=== PATIENT | female | born 1960 | race Caucasian/White ===

== ENCOUNTER 2020-03-04 13:59 | Emergency (ER) | payer OTHER, SELFPAY ==
[2020-03-04 14:09] VITALS: BP 200/60; PULSE 64; RESP 16; TEMP 36.3; O2SAT 100
--- NOTE | 2020-03-04 14:17 | ED.GENADULT ---
HPI - General Adult General Chief complaint: Extremity Injury, Upper Stated complaint: Problem with circulation in hand Time Seen by Provider: 03/04/20 14:17 Source: patient Mode of arrival: ambulatory Limitations: no limitations History of Present Illness HPI narrative: Patient is a 59-year-old female with history of breast cancer who presents for evaluation of skin change. Patient reports that while she was driving she noticed that the tips of 3 of her fingers on her left hand appeared white in color. She has no history of vasculitis, DVT or blood clot, no history of Raynauds. 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 No worsening numbness, paresthesias or decreased strength. No arm swelling, arm pain or arm redness. No lesions. No recent upper respiratory illness symptoms such as rhinorrhea, cough, sore throat. No chest pain or shortness of breath. No trauma to the hand. No recent new medication changes. Related Data Allergies Allergy/AdvReac Type Severity Reaction Status Date / Time docetaxel Allergy Unknown HIVES, RED Verified 03/04/20 14:26 SKIN propoxyphene Allergy Unknown HIVES Verified 03/04/20 14:26 Review of Systems Review of Systems: Narrative: CONSTITUTIONAL: Denies fever, chills, or sweats. EYES: Denies visual changes ENT: Denies rhinorrhea, congestion CARDIOVASCULAR: Denies chest pain, palpitations, or edema. RESPIRATORY: Denies cough or dyspnea. GASTROINTESTINAL: Denies abdominal pain, nausea, vomiting GENITOURINARY: Denies dysuria or hematuria. SKIN: Reports resolved rash, no pain or itching, no lesions MUSCULOSKELETAL: Denies back pain, joint pain, or myalgia. NEUROLOGIC: Denies headache, numbness, or weakness. 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 EYES: PERRLA and EOMI. ENT: Nares clear, no rhinorrhea or epistaxis. Mucous membranes moist. NECK: Supple. CHEST: No respiratory distress, breathing even and non labored HEART: Regular rate, sinus rhythm ABDOMEN:Non distended, non tender EXTREMITIES: Normal range of motion. No edema. SKIN: Warm, dry, no rash. No cyanosis, capillary refill in the nailbeds is less than 3 seconds bilateral hands. Radial pulse in the left hand is 2+, intact sensation median, ulnar, radial nerve distribution. Car Varnisher strength is 5 out of 5. NEURO:No focal deficits. Alert and oriented x3 Course Course Emergency Course: At the time of initial assessment, ABCs are intact and vital signs notable for hypertension however repeat blood pressure was improved. Patient with what appears to be Raynauds phenomenon with a photograph on her phone, but no evidence of any skin changes with good capillary refill at the time of assessment in the ER. Patient neurovascularly intact without any strength deficits. Intact distal sensation. No lesions that be concerning for micro emboli or COVID type changes. I do not feel that there is a severe life or limb threatening process currently as patient is neurologically intact. No recent respiratory illnesses, arm
== END 2020-03-04 14:47 | disposition home or self-care (01) ==
PROVIDERS: Emergency Provider Emergency Medicine; PCP Internal Medicine
DX: I73.00 Raynaud's syndrome without gangrene (principal); E03.9 Hypothyroidism, unspecified; F43.21 Adjustment disorder with depressed mood; F17.200 Nicotine dependence, unspecified, uncomplicated; Z85.3 Personal history of malignant neoplasm of breast; Z92.21 Personal history of antineoplastic chemotherapy
CPT/HCPCS: 99281

== ENCOUNTER 2020-03-09 13:57 | Outpatient (CLI) | payer OTHER, SELFPAY ==
--- NOTE | ~2020-03-09 | CT_ITS ---
EXAMINATION: CTA chest EXAM DATE: 03/09/2020 14:48 INDICATION: Weak left arm pulse. Breast cancer. TECHNIQUE: Spiral CT of the chest following intravenous injection of 75 mL Omnipaque 350. Axial, cor onal and sagittal images were reviewed. Coronal maximum intensity pixel images of chest reviewed. Ma ximum intensity projection 3-D reconstructions of the aorta were created by the technologist on [email or web address] workstation. The dose-length product (DLP) for this examination was 161.00 mGy-cm. The exposu re was tailored according to patient size (auto mA exposure control), and iterative reconstruction (A SIR) was used as additional dose reduction technique. Comparison is made to prior examination from . FINDINGS: There is mild atherosclerosis at the origins of the brachiocephalic, left common carotid an d left subclavian arteries. Some limitations due to motion of the aortic arch but there may be approx imately 20% stenosis of the left subclavian artery origin. Several other regions of left subclavian a rterial sclerosis also causing approximately 20% stenosis by diameter. Thoracic aorta is normal in ca liber, and there is no dissection. Bilateral breast implants. There is mild emphysema. The lungs are clear. There are no pleural or pe ricardial effusions. Tracheobronchial tree is patent. There is no mediastinal, hilar or axillary lymphadenopathy. There is no pneumothorax. Heart normal in size. No evidence of coronary arteri al calcification. Upper abdomen is unremarkable. There is mild to moderate thoracic spondylosis wi thout osteoblastic or osteolytic lesions identified. IMPRESSION: 1. Mild scattered arteriosclerotic disease but no more than 20% stenosis of the left subclavian susp ected. 2. Mild emphysema. Reviewed, dictated and finalized at [facility]. IMPRESSION: 1. Mild scattered arteriosclerotic disease but no more than 20% stenosis of th e left subclavian suspected. 2. Mild emphysema.
== END 2020-03-09 13:58 | disposition home or self-care (01) ==
PROVIDERS: PCP Internal Medicine; Visit Provider Internal Medicine
DX: R09.89 Other specified symptoms and signs involving the circulatory and respiratory systems (principal); I70.90 Unspecified atherosclerosis; J43.9 Emphysema, unspecified
CPT/HCPCS: 71275; Q9967

== ENCOUNTER → 2020-05-10 10:12 | Outpatient (CLI) | payer OTHER, SELFPAY ==
--- NOTE | ~2020-05-10 | DEXA_ITS ---
Bone Density Report Name: Kary Porter Age: 60 Sex: Female Ethnicity: White Date of : 1960 Indication: postmenopausal; screening for osteoporosis; cancer; Referring Provider: Michael Moon Study: Bone densitometry was performed. Exam Date: May 10, 2020 Accession number: [id number] Bone Density: Region BMD T-score Z-score Classification AP Spine (L1-L4) 1.119 0.7 2.1 Normal Femoral Neck (Left) 0.749 -0.9 0.4 Normal Total Hip (Left) 0.840 -0.8 0.1 Normal Femoral Neck (Right) 0.759 -0.8 0.5 Normal Total Hip (Right) 0.811 -1.1 -0.1 Osteopenia Total Hip Mean 0.826 -1.0 0.0 Normal World Health Organization criteria for BMD impression classify patients as: Normal (T-score at or above -1.0), Osteopenia (T-score between -1.0 and -2.5), or Osteoporosis (T-score at or below -2.5). 10-year Fracture Risk(1): Major Osteoporotic Fracture 5.7% Hip Fracture 0.6% Reported Risk Factors: [place] (), Neck BMD=0.749, BMI=18.3, smoking (1) FRAX(R) Version 3.08. Fracture probability calculated for an untreated patient. Fracture probability may be lower if the patient has received treatment. Previous Exams: Region Exam Age BMD T-score BMD Change BMD Change Date g/cm2 vs Baseline vs Previous AP Spine(L1-L4) 05/10/2020 60 1.119 0.7 -0.020 -0.020 02/07/2015 54 1.139 0.8 Total Hip(Left) 05/10/2020 60 0.840 -0.8 -0.065* -0.065* 02/07/2015 54 0.904 -0.3 Total Hip(Right) 05/10/2020 60 0.811 -1.1 -0.071* -0.071* 02/07/2015 54 0.883 -0.5 *Denotes significance at 95% confidence level, LSC for AP Spine = 0.022 g/cm2, LSC for Total Hip = 0.027 g/cm2 Clinical Information Provided by Patient: Smokes Has used the following medications: Vitamin D, Calcium Has the following medical conditions: Cancer Patient maximum height was 65 Menopause Age: 50 No regular weight bearing exercise Drinks caffeinated beverages Onset of menses at age 12 Number of children 1 Impression: The patient has low bone mass, based on the Right Total Hip T-score. The patient has an estimated ten-year risk of hip fracture of 0.6% and an estimated ten-year risk of major fracture of 5.7%, based on the WHO FRAX algorithm. The patient has risk factors, including: smoking. The BMD for the Total Hip(Left) decreased, changing by -0.065 since the last DXA exam. The BMD for the Total Hip(Right) decreased, changing by
== END ==
PROVIDERS: PCP Internal Medicine; Visit Provider Obstetrics & Gynecology
DX: Z78.0 Asymptomatic menopausal state (principal); M85.851 Other specified disorders of bone density and structure, right thigh
CPT/HCPCS: 77080

== ENCOUNTER 2020-09-22 01:40 | Outpatient (CLI) | payer OTHER, SELFPAY ==
[2020-09-22 18:58] LABS: SARS-CoV-2 RNA PCR Negative
== END 2020-09-22 01:41 | disposition home or self-care (01) ==
LOC: ANHCOVIDDT 01:40
PROVIDERS: PCP Internal Medicine; Visit Provider Internal Medicine Gastroenterology
DX: Z01.818 Encounter for other preprocedural examination (principal); Z20.828 Contact with and (suspected) exposure to other viral communicable diseases
CPT/HCPCS: 87635; C9803; U0003

== ENCOUNTER 2020-09-25 01:46 | Day surgery (SDC) | payer OTHER, SELFPAY ==
[2020-09-19 10:45] VITALS: BMI 18.6
--- NOTE | 2020-09-19 11:02 | PC.NURSE ---
Pt. states she takes Xarelto 20 mg daily as preventative, pt. had a left arm arterial embolism in March 2020. Instructed pt. to call Dr. Schaefer office to receive instructions on whether to hold or continue Xarelto prior to procedure. 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
--- NOTE | 2020-09-24 09:52 | P.PNAN_ITS ---
Anes - Initial Pre Proc Eval Procedure: Operation Date: 09/25/20 10:45 Proposed Procedures p Screening Colonoscopy - Anton López MD Date/Time: 09/24/20 09:52 Surgeon: Anton López MD Pre Op Diagnosis: Neoplasm Screening Patient Data Age: 60 Gender: F Height: 1.64 m Weight: 50 kg Allergies Allergy/AdvReac Type Severity Reaction Status Date / Time docetaxel Allergy Unknown HIVES, RED Verified 09/25/20 09:16 SKIN propoxyphene Allergy Unknown HIVES Verified 09/25/20 09:16 Home Medications Medication Instructions Recorded Confirmed Type trazodone 50 mg tablet 50 mg PO .AT HS #30 tablet 03/09/20 09/19/20 Rx aspirin 81 mg tablet,delayed 81 mg PO DAILY 03/23/20 09/19/20 History release venlafaxine 37.5 mg 37.5 mg PO DAILY #30 cap 06/12/20 09/19/20 Rx capsule,extended release 24 hr amlodipine 5 mg tablet 5 mg PO DAILY #90 tablet 07/27/20 09/19/20 Rx levothyroxine 112 mcg tablet 112 mcg PO DAILY #90 tablet 08/08/20 09/19/20 Rx sodium,potassium,mag sulfates 17.5 354 ml PO .COMPLEX #354 ml 08/14/20 09/19/20 Rx gram-3.13 gram-1.6 gram oral soln calcium carbonate-vitamin D3 1 tablet PO BID 09/19/20 09/19/20 History [Calcium 600 + D(3)] rivaroxaban [Xarelto] 20 mg PO DAILY 09/19/20 09/19/20 History Patient hx anesthesia problems: none Family hx anesthesia problems: none PMFSH Past Medical History Medical History (Updated 09/25/20 @ 10:02 by Angel Tanner DO) Essential hypertension Heart murmur Hx of adenomatous colonic polyps Hypothyroidism Insomnia Loss of sense of smell Malignant neoplasm of left female breast On senior living drug therapy Personal history of nicotine dependence Situational depression Family History Family History (Updated 05/15/17 @ 14:34 by DOCTOR UNKNOWN) Mother Family history of thyroid disease Family history of chronic obstructive pulmonary disease Family history of lung disease Sibling Family history of hepatitis Social History Social History Smoking packs per day: 1 Smoking cigarettes per day: 20.0 Years smoked: 45 Smoking pack-years: 45.00 Smoking status: Current every day smoker Tobacco type: cigarettes Alcohol intake: current Drinks per week: 6 Alcohol use details: 6 beers a week Living arrangements: with family Gender identity (if verbalized by the patient): Female Spiritual care concerns: No Anes - Eval Final PreProcedure Day of Procedure 09/24/20 09:52 Patient weight: thin Heart: regular rate and rhythm Lungs: clear to auscultation and normal air movement Airway: Mallampati scale class II Neurological: alert and oriented Last oral intake: >/= 8 hours ASA classification: III Emergent: no Anesthetic plan: proceed Anesthesia type and monitoring: general GIVS and standard monitoring Informed Consent: The patient's anesthetic plan and its attendant risks and benefits were discussed with the patient/family/POA. Questions were solicited and answers provided to the satisfaction of the patient/family/POA.
[2020-09-25] MEDS: LACTATED RINGERS 1,000 ML 150 ML IV CONT (09:25)
[2020-09-25 09:26] VITALS: BP 133/50; PULSE 69; RESP 18; TEMP 36.4; O2SAT 97; BMI 17.4
--- NOTE | 2020-09-25 10:02 | PM.HPGS ---
History of Present Illness History of Present Illness Consent: Risks, benefits, and alternatives have been discussed and questions answered. Patient agrees to proceed with procedure. Chief complaint: Neoplasm Screening Narrative: Kary Porter is a 60 year old female with polyps 3 years ago Review of Systems Constitutional: Constitutional: Denies headache(s) and Denies weakness Eyes: Eyes: Denies blurry vision ENT: Reports Normal hearing present, Denies headache(s) and Denies neck pain Cardiovascular: Cardiovascular: Denies chest pain and Denies dyspnea Respiratory: Respiratory: Denies dyspnea Gastrointestinal: Gastrointestinal: Reports no additional gastrointestinal complaints Genitourinary: Genitourinary: Denies dysuria Musculoskeletal: Musculoskeletal: Denies neck pain Integumentary/Breasts: Skin/Breast: Denies dry skin Neurologic: Reports Normal hearing present, Denies headache(s) and Denies weakness Psychiatric: Psychiatric: Denies anxiety Endocrine: Endocrine: Denies change in body appearance Hematologic/Lymphatic: Hematologic/Lymphatic: Denies easy bleeding Allergic/Immunologic: Allergic/Immunologic: Denies urticaria PMFSH Past Medical History Medical History (Updated 09/25/20 @ 10:02 by Angel Tanner DO) Essential hypertension Heart murmur Hx of adenomatous colonic polyps Hypothyroidism Insomnia Loss of sense of smell Malignant neoplasm of left female breast On jail drug therapy Personal history of nicotine dependence Situational depression Family History Family History (Updated 05/15/17 @ 14:34 by DOCTOR UNKNOWN) Mother Family history of thyroid disease Family history of chronic obstructive pulmonary disease Family history of lung disease Sibling Family history of hepatitis Social History Social History Smoking packs per day: 1 Smoking cigarettes per day: 20.0 Years smoked: 45 Smoking pack-years: 45.00 Smoking status: Current every day smoker Tobacco type: cigarettes Alcohol intake: current Drinks per week: 6 Alcohol use details: 6 beers a week Living arrangements: with family Gender identity (if verbalized by the patient): Female Spiritual care concerns: No Meds Home Medications and Allergies Home Medications Medication Instructions Recorded Confirmed Type trazodone 50 mg tablet 50 mg PO .AT HS #30 tablet 03/09/20 09/19/20 Rx aspirin 81 mg tablet,delayed 81 mg PO DAILY 03/23/20 09/19/20 History release venlafaxine 37.5 mg 37.5 mg PO DAILY #30 cap 06/12/20 09/19/20 Rx capsule,extended release 24 hr amlodipine 5 mg tablet 5 mg PO DAILY #90 tablet 07/27/20 09/19/20 Rx levothyroxine 112 mcg tablet 112 mcg PO DAILY #90 tablet 08/08/20 09/19/20 Rx sodium,potassium,mag sulfates 17.5 354 ml PO .COMPLEX #354 ml 08/14/20 09/19/20 Rx gram-3.13 gram-1.6 gram oral soln calcium carbonate-vitamin D3 1 tablet PO BID 09/19/20 09/19/20 History [Calcium 600 + D(3)] rivaroxaban [Xarelto] 20 mg PO DAILY 09/19/20 09/19/20 History Allergies Allergy/AdvReac Type Severity Reaction Status Date / Time docetaxel Allergy Unknown HIVES, RED Verified 09/25/20 09:16 SKIN propoxyphene Allergy Unknown HIVES Verified 09/25/20 09:16 Vital Signs Vital Signs - 24 hr 09/25/20 09:26 Temperature 97.5 F L Pulse Rate 69 Respiratory Rate 18 Blood Pressure 133/50 L Pulse Oximetry 97 Exam Const: General: comfortable and no acute distress HENMT: General nose exam: Normal nares present Eyes: General: appearance normal, both eyes and all related structures Neck: Neck: no JVD Resp: Auscultation: clear to auscultation bilaterally Cardio: Rate: regular rate Rhythm: regular rhythm GI: Inspection: non-distended GI Palp: Yes Soft to palpation Skin: General skin exam: normal color Neuro: General: gait normal Speech: normal speech Extrem: General: normal to
[2020-09-25 10:24] VITALS: BP 88/36; PULSE 56; RESP 18; O2SAT 98
[2020-09-25 10:34] VITALS: BP 93/41; PULSE 59; RESP 22; O2SAT 99
[2020-09-25 10:44] VITALS: BP 102/48; PULSE 58; RESP 20; O2SAT 99
== END 2020-09-25 11:08 | disposition home or self-care (01) ==
PROVIDERS: PCP Internal Medicine; Visit Provider Internal Medicine Gastroenterology
PROC: 0DJD8ZZ Inspection of Lower Intestinal Tract, Via Natural or Artificial Opening Endoscopic (ICD-10-PCS; CPT 45378; principal; 2020-09-25 10:45)
DX: Z12.11 Encounter for screening for malignant neoplasm of colon (principal); D12.2 Benign neoplasm of ascending colon; D12.3 Benign neoplasm of transverse colon; K64.8 Other hemorrhoids; Z79.82 Long term (current) use of aspirin; I10 Essential (primary) hypertension; E03.9 Hypothyroidism, unspecified; G47.00 Insomnia, unspecified; Z85.3 Personal history of malignant neoplasm of breast; F17.210 Nicotine dependence, cigarettes, uncomplicated; F32.9 Major depressive disorder, single episode, unspecified; R43.9 Unspecified disturbances of smell and taste
CPT/HCPCS: 45380; 87635; 88305; C9803; J2704; J7120; U0003

== ENCOUNTER 2022-03-20 19:53 | Emergency (ER) | payer OTHER, SELFPAY ==
--- NOTE | ~2022-03-20 | CT_ITS ---
EXAMINATION: CT thoracic spine wo con DATE: 03/20/2022 20:35 INDICATION: Breast cancer, metastatic. Atraumatic back pain. TECHNIQUE: Computed tomography (CT) of the thoracic spine was performed with 75 mL Omnipaque-350 intr avenous contrast. Automated exposure control and iterative reconstruction technique were employed. Ex am dose: 253.47 mGy-cm total exam DLP. Thoracic spine COMPARISON: None FINDINGS: There is degenerative disc disease at C5-6 and C6-7. There is osteopenia. There is mild degenerative spurring of the thoracic spine. No fracture or bone destruction of the thoracic spine is evident. There are multiple Schmorl's nodes. Radionuclide bone scan would be more sensitive for detection of bone metastases. PET/CT scan or MR ex amination would be more sensitive for detection of metastatic disease. IMPRESSION: Degenerative disc disease at C5-6 and C6-7 Osteopenia Degenerative spurring of the thoracic spine Reviewed, dictated and finalized at [facility]. Reviewed, dictated and finalized at location [facility].
[2022-03-20 19:53] VITALS: BP 153/78; PULSE 88; RESP 20; TEMP 36.3; O2SAT 98
--- NOTE | 2022-03-20 20:08 | ED.BACK ---
HPI - Back Pain/Injury General Chief Complaint: Back Pain/Injury Stated Complaint: back pain Time Seen by Provider: 03/20/22 20:00 History of Present Illness HPI Narrative: Patient is a 61-year-old female with a history of breast cancer with mets to lungs here for evaluation of atraumatic mid back pain today. Patient states she woke up with a severe pain in middle of her back that has been constant in nature ever since. She has taken 12 ibuprofen and also Xanax without relief of her pain. Denies history of back pain, increased exertion, recent injury. Patient is not currently getting treatment for her breast cancer, but she does have a follow-up scan next Thursday. She follows with a Dr. Cannon at [place]. Denies saddle anesthesia, loss of bowel or bladder, pain, shortness of breath, loss of consciousness. Related Data Home Medications Medication Instructions Recorded Confirmed aspirin 81 mg tablet,delayed 81 mg PO DAILY 03/23/20 02/17/22 release (Adult Aspirin Regimen) calcium carbonate-vitamin D3 600 1 tablet PO BID 09/19/20 02/17/22 mg-125 unit tablet rivaroxaban 20 mg tablet (Xarelto) 20 mg PO DAILY 09/19/20 02/17/22 Allergies Allergy/AdvReac Type Severity Reaction Status Date / Time docetaxel Allergy Intermediate HIVES, RED Verified 03/20/22 20:06 SKIN propoxyphene Allergy Intermediate HIVES Verified 03/20/22 20:06 Review of Systems Review of Systems: Gen.: Denies fevers or chills Eyes: Denies eye pain or visual change ENT: Denies congestion Respiratory: Denies shortness of breath or cough CV: Denies chest pain or palpitations GI: Reports abdominal pain nausea, emesis or diarrhea : denies burning, urgency, frequency or hematuria Musculoskeletal: Reports back pain. 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 Personal history of nicotine dependence Situational depression Surgical History Surgical History History of cone biopsy of uterine cervix Family History Family History Mother Family history of thyroid disease Family history of chronic obstructive pulmonary disease Family history of lung disease Sibling Family history of hepatitis Social History Social History (Updated 02/17/22 @ 09:53 by JAS Morris) Years smoked: 45 Smoking status: Former smoker Tobacco type: cigarettes Second hand tobacco smoke exposure: No Alcohol intake: current Drinks per week: 6 Alcohol use details: 6 beers a week Substance use: current Substance use type: marijuana Gender identity (if verbalized by the patient): Female Spiritual care concerns: No Exam Narrative: APPEARANCE: Disheveled, uncomfortable appearing Head: normocephalic and atraumatic. EYES: PERRLA/EOMI, conjunctivae clear NOSE: No nasal drainage EARS: External ear normal in appearance THROAT: Oropharynx is clear. Mucous membranes are moist. NECK: Supple. No adenopathy, no masses. RESPIRATORY: Airway patent, respirations nonlabored. Clear to auscultation bilaterally, no rales, rhonchi, wheezing. CARDIOVASCULAR: Equal radial pulses. Equal DP and PT pulses. Regular rate and rhythm without murmurs, rubs, or gallops. ABDOMINAL: Normoactive bowel sounds. Soft, nontender, nondistended. No rebound tenderness or guarding. MUSCULOSKELETAL: Tender to palpation along midline of T-spine, most notable around T9. extremities are warm and well-perfu
[2022-03-20] MEDS: HYDROcodone/acetaminophen (*CRX) 5-325 MG TABLET 1 TAB PO (20:26)
[2022-03-20 21:40] LABS: Basophils Absolute Auto 0.1 K/mm3 (0.0-0.1); Basophils Percent Auto 1.2 % (0.2-1.2); Eosinophils Absolute Auto 0.5 K/mm3 (0-0.3); Eosinophils Percent Auto 5.8 % (0-4.4); Hematocrit 32.7 % (37.0-47.0); Hemoglobin 10.5 g/dL (12.0-15.0); Immature Granulocyte Absolute 0.01 K/mm3 (0.00-0.031); Immature Granulocyte Percent A 0.1 % (0-0.5); Lymphocytes Absolute Auto 2.21 K/mm3 (0.9-3.2); Lymphocytes Percent Auto 26.4 % (18.3-44.2); Mean Corpuscular HGB Conc 32.1 g/dl (32-36); Mean Corpuscular Hemoglobin 29.3 pg (26-34); Mean Corpuscular Volume 91.3 fl (80-100); Mean Platelet Volume 8.5 fl (7.4-10.4); Monocytes Absolute Auto 0.8 K/mm3 (0.1-0.6); Neutrophils Absolute Auto 4.7 K/mm3 (1.3-6.7); Neutrophils Percent Auto 56.5 % (45.5-73.1); Platelet Count Result 457 k/mm3 (150-375); Red Blood Count 3.58 M/mm3 (4.2-5.4); Red Cell Distribution Width 15.2 % (11.5-14.5); White Blood Count 8.4 K/mm3 (4.5-10.0)
[2022-03-20 21:50] LABS: Alanine Aminotransferase 18 U/L (6-35); Albumin Level 3.9 g/dL (3.5-5.1); Alkaline Phosphatase 96 U/L (38-126); Anion Gap 0 mmol/L (8-16); Aspartate Amino Transferase 32 U/L (14-36); Bilirubin,Total 0.1 mg/dL (0.2-1.3); Blood Urea Nitrogen 13 mg/dL (7-17); Calcium 9.1 mg/dL (8.4-10.2); Carbon Dioxide 30 mmol/L (22-30); Chloride 104 mmol/L (98-107); Estimated Glomerular Filt Rate > 60; Glucose 93 mg/dL (65-110); Potassium 4.2 mmol/L (3.4-5.0); Sodium 134 mmol/L (137-145)
[2022-03-20] MEDS: MORPHINE SULFATE (*CRX) 4 MG/ML INJ IV PUSH (21:53)
[2022-03-20 22:35] VITALS: BP 138/49; PULSE 58; RESP 20; O2SAT 96
== END 2022-03-20 22:40 | disposition home or self-care (01) ==
PROVIDERS: Physician Assistant; Emergency Provider Emergency Medicine; PCP Internal Medicine
DX: M54.6 Pain in thoracic spine (principal); I10 Essential (primary) hypertension; E03.9 Hypothyroidism, unspecified; Z85.3 Personal history of malignant neoplasm of breast; Z85.118 Personal history of other malignant neoplasm of bronchus and lung; Z86.010 Personal history of colon polyps; Z79.82 Long term (current) use of aspirin; Z79.01 Long term (current) use of anticoagulants; Z87.891 Personal history of nicotine dependence; M85.88 Other specified disorders of bone density and structure, other site; M50.322 Other cervical disc degeneration at C5-C6 level
CPT/HCPCS: 36415; 72128; 80053; 85025; 96374; 99284; A9270; J2270

== ENCOUNTER → 2023-11-11 12:13 | Outpatient (CLI) | payer MEDICARE, SELFPAY ==
--- NOTE | ~2023-11-11 | DEXA_ITS ---
Bone Density Report Name: DEJON WATKINS Age: 63 Sex: Female Ethnicity: White Date of : 1960 Indication: osteopenia; postmenopausal Referring Provider: JOSÉ JIMENEZ Study: Bone densitometry was performed. Exam Date: November 11, 2023 Accession number: [id number] Bone Density: Region BMD T-score Z-score Classification AP Spine (L1-L4) 1.110 0.6 2.2 Normal Femoral Neck (Left) 0.734 -1.0 0.4 Normal Total Hip (Left) 0.816 -1.0 0.1 Normal Femoral Neck (Right) 0.783 -0.6 0.8 Normal Total Hip (Right) 0.797 -1.2 0.0 Osteopenia Total Hip Mean 0.807 -1.1 0.1 Osteopenia World Health Organization criteria for BMD impression classify patients as: Normal (T-score at or above -1.0), Osteopenia (T-score between -1.0 and -2.5), or Osteoporosis (T-score at or below -2.5). 10-year Fracture Risk(1): Major Osteoporotic Fracture 6.3% Hip Fracture 0.8% Reported Risk Factors: [place] (), Neck BMD=0.734, BMI=18.1, smoking (1) FRAX(R) Version 3.08. Fracture probability calculated for an untreated patient. Fracture probability may be lower if the patient has received treatment. Previous Exams: Region Exam Age BMD T-score BMD Change BMD Change Date g/cm2 vs Baseline vs Previous AP Spine(L1-L4) 11/11/2023 63 1.110 0.6 -0.029* -0.009 05/10/2020 60 1.119 0.7 -0.020 -0.020 02/07/2015 54 1.139 0.8 Total Hip(Left) 11/11/2023 63 0.816 -1.0 -0.088* -0.023 05/10/2020 60 0.840 -0.8 -0.065* -0.065* 02/07/2015 54 0.904 -0.3 Total Hip(Right) 11/11/2023 63 0.797 -1.2 -0.086* -0.015 05/10/2020 60 0.811 -1.1 -0.071* -0.071* 02/07/2015 54 0.883 -0.5 *Denotes significance at 95% confidence level, LSC for AP Spine = 0.022 g/cm2, LSC for Total Hip = 0.027 g/cm2 Clinical Information Provided by Patient: Smokes Has used the following medications: Vitamin D, Calcium Patient maximum height was 65 Menopause Age: 50 No regular weight bearing exercise Drinks caffeinated beverages Onset of menses at age 12 Number of children 1 Impression: The patient has low bone mass, based on the Right Total Hip T-score. The patient has an estimated ten-year risk of hip fracture of 0.8% and an estimated ten-year risk of major fracture of 6.3%, based on the WHO FRAX algorithm. The patient has risk factors, including: smoking. No signif
== END ==
PROVIDERS: PCP Nurse Practitioner Family; Visit Provider Nurse Practitioner Family
DX: Z13.820 Encounter for screening for osteoporosis (principal); M85.851 Other specified disorders of bone density and structure, right thigh
CPT/HCPCS: 77080